=== PATIENT | male | born 1955 | race Caucasian/White ===

== ENCOUNTER → 2020-11-20 | Outpatient (CLI) | payer OTHER ==
[~2020-11-20] MED LIST: ASPIR 8181 MG PO; ASPIRIN325 PO; ATIVAN0.5 MG PO; BYSTOLIC 5 MG5 M1 PO; CLARITIN10 MG PO; COLACE100 MG PO; COZAAR 25 MG TA25 M1 PO; DEPO-TESTO200 MG/1 M IM; DIPHENHIST50 MG PO; EFFIENT10 MG PO; LIPITOR80 MG PO; NITROGLYCERIN0.4 MG SUBLING; PROZAC10 MG PO
== END ==
LOC: SJCVCIMAG 08:15
PROVIDERS: ATTEND Internal Medicine Cardiovascular Disease
DX: I49.3 Ventricular premature depolarization (principal); I49.1 Atrial premature depolarization; I25.10 Atherosclerotic heart disease of native coronary artery without angina pectoris; I25.2 Old myocardial infarction; I10 Essential (primary) hypertension; E78.5 Hyperlipidemia, unspecified; Z98.61 Coronary angioplasty status